=== PATIENT | male | born 2000 | race Two or more races ===

== ENCOUNTER 2024-09-28 18:23 | Emergency (ER) | payer MEDICAID ==
[~2024-09-28] VITALS: Ht 165.1 cm; Wt 95.3 kg
[2024-09-28] MEDS ORDERED: HYDROCODONE/APAP 5-325MG TABLET ONE (19:37)
[2024-09-28] MEDS: HYDROCODONE/APAP 5-325MG TABLET PO ONE (19:40)
[2024-09-28] MEDS ORDERED: HYDR-4209 PO (22:36)
[2024-09-28] MEDS ORDERED: ONDA4TAB11 PO (22:36)
[2024-09-28 22:51] VITALS: BP 156/84; TEMP 208.4; O2SAT 97
== END 2024-09-28 22:52 | disposition home or self-care (01) ==
LOC: ER 18:23
DX: S93.402A Sprain of unspecified ligament of left ankle, initial encounter (principal); S80.212A Abrasion, left knee, initial encounter; S50.811A Abrasion of right forearm, initial encounter; W18.30XA Fall on same level, unspecified, initial encounter; Y93.89 Activity, other specified; Y92.89 Other specified places as the place of occurrence of the external cause; Y99.8 Other external cause status
CPT/HCPCS: 73590; 73610; 73630; 73700; A4606; A4663